=== PATIENT | female | born 1950 | race Caucasian/White ===

== ENCOUNTER 2017-05-25 15:04 | Observation (INO) ==
--- NOTE | 2017-05-25 16:45 | Emergency Department Note ---
Disposition Clinical Impression: GI bleed Qualifiers: GI bleed type/associated pathology: unspecified gastrointestinal hemorrhage type Qualified Code(s): K92.2 - Gastrointestinal hemorrhage, unspecified Disposition: Admitted As Inpatient Condition: Fair GI Bleed HPI - General Chief complaint: ED GI Bleed Stated complaint: bloody stool Time Seen by Provider: 05/25/17 16:04 Source: patient Mode of arrival: private vehicle Limitations: no limitations Nursing Notes Reviewed: Yes Vital Signs Reviewed: Yes - History of Present Illness HPI Narrative: 66-year-old female history of ulcerative colitis diagnosed 20 years ago without GI follow-up who presents to the ER with a chief complaint of dark bowel movements. Patient states that on Thursday she started noticing dark tarry bowel movements. She states that on Thursday she had dark diarrhea as well as dark vomit. She reports that she had her hemoglobin checked on Thursday for preoperative evaluation and it was 13. She denies a prior history of GI bleed in the past. She is not on any anticoagulation. She states that for the last 2 months she was dealing with a dental issue and was on ibuprofen and aspirin. She reports that she had endoscopy upper and lower in January that was okay but "they said my stomach looked wall". She reports weakness and dyspnea on exertion. No other complaints. Pt Subjective Complaint: melena Onset (ago): day(s) Consistency: intermittent Severity: moderate Improves with: nothing Worsens with: nothing Context: other (ulcerative colitis) Associated symptoms: Reports: shortness of breath, syncope/near-syncope, other ( weakness) Treatments Prior to Arrival: none - Related Data Home Medications Medication Instructions Recorded Confirmed Calcium Phosphate Trib/Vit D3 1 each PO DAILY 05/25/17 05/25/17 [Calcium Adult Gummies] Cholecalciferol (Vitamin D3) 2,000 unit PO DAILY 05/25/17 05/25/17 [Vitamin D] L. Acidophilus/Pectin, [place] 1 each PO BID 05/25/17 05/25/17 [Acidophilus Probiotic Capsule] Metoprolol [Lopressor] 25 mg PO DAILY 05/25/17 05/25/17 Multivitamin [Multi-Day Vitamins] 1 each PO DAILY 05/25/17 05/25/17 Omeprazole Magnesium [Prilosec Otc] 20 mg PO DAILY 05/25/17 05/25/17 Potassium 99 mg PO DAILY PRN 05/25/17 05/25/17 Allergies Allergy/AdvReac Type Severity Reaction Status Date / Time shellfish derived Allergy Hives Verified 05/25/17 15:15 All systems ED: reviewed and negative except as stated. Constitutional: Denies: fever Cardiovascular: Reports: dyspnea on exertion. Denies: chest pain Respiratory: Denies: cough, dyspnea Gastrointestinal: Reports: melena. Denies: abdominal pain, nausea Genitourinary: Denies: hematuria Past Medical History - Past Medical History Attestation: Yes The following information was validated with the patient. Source: patient Medical history: Reports: arthritis, GERD, hyperlipidemia, syncope Surgical history: Reports: cholecystectomy, hysterectomy, orthopedic, other, other Psychiatric history: Reports: no psych history - Social History Smoking Status: Never smoker Alcohol use: Reports: none Drug use: Reports: none Physical Exam - General Limitations: no limitations General appearance: alert, in no apparent distress - Head Head exam: atraumatic, normocephalic, normal inspection - Eye Eye exam: Present: normal appearance, EOMI - ENT ENT exam: normal exam - Neck Neck exam: Present: normal inspection - Chest Chest inspection: Present: normal inspection, symmetric chest wall rise - Respiratory Respiratory exam: Present: normal lung sounds bilaterally - Cardiovascular Cardiovascular exam: Present: normal rhythm, tachycardia, normal heart sounds - Abdominal Exam Abdominal exam: Present: soft, Non-Tender. Absent: tenderness, distention, rigidity - Rectal Exam Rectal exam: Present: normal inspection, black stool - Extremities Exam Extremities exam: Present: normal inspection, full ROM - Expanded Upper Extremity Exam Shoulder exam: Present: normal inspection, full ROM Arm exam: Present: normal inspection, full ROM Elbow exam: Present: normal inspection, full ROM Forearm/Wrist exam: Present: normal inspection, full ROM Hand exam: Present: normal inspection, full ROM - Expanded Lower Extremity Exam Hip/Pelvis exam: Present: normal inspection, full ROM Upper leg exam: Present: normal inspection, full ROM Knee exam: Present: normal inspection, full ROM Lower leg exam: Present: normal inspection, full ROM Ankle exam: Present: normal inspection, full ROM Foot/toe exam: Present: normal inspection, full ROM - Neurological Exam Neurological exam: Present: alert, other (GCS 15, Non focal neurologic exam) - Psychiatric Psychiatric exam: Present: normal affect, normal mood - Skin Skin exam: Present: warm, dry, intact, normal color Course Course Narrative: Patient seen and examined. Vital signs reviewed. She is slightly tachycardic here but otherwise hemodynamically stable. We will obtain a CBC, type and screen as well as stool occult blood. We will give her some IV fluids for her tachycardia. Disposition pending. - Reevaluation(s) Reevaluation #1: I discussed results of the patient's lab work with her. She is in agreement with staying in the hospital. She will be admitted to the hospitalist service. - Consultations Consultation #1: I spoke with the on-call senior operations analyst Dr. Small. I discussed the patient's history, labs and interventions to date. He requests give the patient protonic' s bolus and start her on a drip. He will see her in consultation. Vital Signs Temperature 97.4 F L 05/25/17 15:12 Pulse Rate 104 05/25/17 15:12 Respiratory Rate 18 05/25/17 15:12 Blood Pressure 148/78 05/25/17 15:12 O2 Sat by Pulse Oximetry 97 05/25/17 15:12 Temperature 97.4 F L 05/25/17 15:12 Pulse Rate 81 05/25/17 19:00 Respiratory Rate 16 05/25/17 19:00 Blood Pressure 123/53 05/25/17 19:00 O2 Sat by Pulse Oximetry 99 05/25/17 19:00 Oxygen Delivery Oxygen Delivery Room Air GI Bleed - [facility] Narrative Medical decision making narrative: 66-year-old female presents to the ER due to tarry stools. She reports a hemoglobin of 13 on Thursday of last week. She also reports NSAID use within the last few months. She has a history of ulcerative colitis but is not on any medications for it. Her hemoglobin today is 7.8 from 13. She was given IV fluids as well as Protonix bolus and drip. Gastroenterology was consulted in the emergency department. Patient admitted to the hospitalist service. - Lab Data Lab results reviewed: Yes I reviewed the patient's lab results. Result diagrams: 05/25/17 16:38 05/25/17 16:38 Lab Results 05/25/17 05/25/17 05/25/17 Range/Units 16:38 16:38 16:38 WBC 9.3 (4.3-11.1) K/mcL RBC 2.51 L (3.82-4.97) M/mcL Hgb 7.8 L (11.5-15.4) g/dL Hct 23.1 L (35.3-44.9) % MCV 92.0 (83.0-100.0) fL MCH 31.1 (28.0-33.3) pg MCHC 33.8 (31.6-35.5) g/dL RDW 13.9 (11.5-14.5) % Plt Count 265 (140-400) K/mcL MPV 10.4 (9.4-12.4) fL Immature Gran % 2.0 (0-4) % Seg Neutrophils % 61.3 % Lymphocytes % 27.0 % Monocytes % 8.5 % Eosinophils % 0.9 % Basophils % 0.3 % Neutrophils # 5.7 (1.6-8.9) K/mcL Lymphocytes # 2.5 (0.6-4.6) K/mcL Monocytes # 0.8 (0.0-1.3) K/mcL Eosinophils # 0.1 (0.0-0.6) K/mcL Basophils # 0.0 (0.0-0.2) K/mcL PT (9.4-12.1) Seconds INR Sodium 137 (136-145) mEq/L Potassium 4.1 (3.5-4.5) mEq/L Chloride 104 (98-109) mEq/L Carbon Dioxide 24 (19-29) mEq/L BUN 30 H (7-20) mg/dL Creatinine 0.81 (0.57-1.11) mg/dL Est GFR ( Amer) > 60 (> 60) Est GFR (Non-Af Amer) > 60 (> 60) BUN/Creatinine Ratio 37 H (6-26) Glucose 113 H (70-99) mg/dL Calculated Osmolality 291 (280-300) Calcium 9.1 (8.6-10.8) mg/dL Stool Occult Blood (Negative) Blood Type A POSITIVE Antibody Screen NEGATIVE 05/25/17 05/25/17 Range/Units 16:43 16:45 WBC (4.3-11.1) K/mcL RBC (3.82-4.97) M/mcL Hgb (11.5-15.4) g/dL Hct (35.3-44.9) % MCV (83.0-100.0) fL MCH (28.0-33.3) pg MCHC (31.6-35.5) g/dL RDW (11.5-14.5) % Plt Count (140-400) K/mcL MPV (9.4-12.4) fL Immature Gran % (0-4) % Seg Neutrophils % % Lymphocytes % % Monocytes % % Eosinophils % % Basophils % % Neutrophils # (1.6-8.9) K/mcL Lymphocytes # (0.6-4.6) K/mcL Monocytes # (0.0-1.3) K/mcL Eosinophils # (0.0-0.6) K/mcL Basophils # (0.0-0.2) K/mcL PT 11.3 (9.4-12.1) Seconds INR 1.0 Sodium (136-145) mEq/L Potassium (3.5-4.5) mEq/L Chloride (98-109) mEq/L Carbon Dioxide (19-29) mEq/L BUN (7-20) mg/dL Creatinine (0.57-1.11) mg/dL Est GFR ( Amer) (> 60) Est GFR (Non-Af Amer) (> 60) BUN/Creatinine Ratio (6-26) Glucose (70-99) mg/dL Calculated Osmolality (280-300) Calcium (8.6-10.8) mg/dL Stool Occult Blood Positive A (Negative) Blood Type Antibody Screen - EKG Data EKG attestation: Yes I reviewed and interpreted this EKG. EKG results narrative: EKG demonstrates sinus rhythm. Normal axis. Normal intervals. No ST elevations or depressions. No acute ischemic findings. No significant changes from previous EKG. S.B.A.R. - S.B.A.R. Situation: Demographics, MOA Background: Presenting Complaint, Relevant PMH, Meds, & Allergies Assessment: Vital Signs, Course and respsone to treatment, Exam Concerns, Patient/Family Expectation, Pertinant Lab Results, Outstanding Labs Recommendation: Barrier(s) to disposition, Recommendation based on pending studies, treatments, or consults S.B.A.RArias Report Given to: [facility] Time: 18:41 Attestation Statement - Attestation Attestation: I examined this patient and my medical decision-making was reviewed with the Resident Physician. I agree with the documented findings, disposition and treatment plan as described except to the extent set forth below. Hemodynamically normal patient with a significant drop in hemoglobin over the last few days. Had melanotic stool a couple of days ago, now combating a bright red blood. Stool on her exam here is dark brown, possibly black per the resident's report. Spoke with endoscopist, patient being admitted to the hospital.
[2017-05-25] MEDS ORDERED: 0.9 % Sodium Chloride 1,000 ML IVC ONE (16:46)
[2017-05-25 17:02] LABS: Basophils % 0.3 %; Eosinophils # 0.1 K/mcL (0.0-0.6); Eosinophils % 0.9 %; Hematocrit 23.1 % (35.3-44.9); Lymphocytes # 2.5 K/mcL (0.6-4.6); Mean Corpuscular HGB Conc 33.8 g/dL (31.6-35.5); Mean Corpuscular Hemoglobin 31.1 pg (28.0-33.3); Mean Platelet Volume 10.4 fL (9.4-12.4); Monocytes # 0.8 K/mcL (0.0-1.3); Monocytes % 8.5 %; Neutrophils # 5.7 K/mcL (1.6-8.9); Platelet Count 265 K/mcL (140-400); Red Blood Count 2.51 M/mcL (3.82-4.97); Red Cell Distribution Width 13.9 % (11.5-14.5); Segmented Neutrophils % 61.3 %
[2017-05-25 17:04] LABS: Hemoglobin 7.8 g/dL (11.5-15.4)
[2017-05-25 17:14] LABS: BUN/Creatinine Ratio 37 (6-26); Blood Urea Nitrogen 30 mg/dL (7-20); Calcium 9.1 mg/dL (8.6-10.8); Carbon Dioxide 24 mEq/L (19-29); Chloride 104 mEq/L (98-109); Glucose 113 mg/dL (70-99); Osmolality,Calculated 291 (280-300); Potassium 4.1 mEq/L (3.5-4.5); Sodium 137 mEq/L (136-145); eGFR For African Americans > 60 (> 60); eGFR For Non-African Americans > 60 (> 60)
[2017-05-25 17:16] LABS: Prothrombin Time 11.3 Seconds (9.4-12.1)
[2017-05-25] MEDS ORDERED: Pantoprazole 80 MG in 0.9 % Sodium Chloride 50 ML IVPB ONE (17:38)
[2017-05-25] MEDS: Pantoprazole 40 MG in 0.9 % Sodium Chloride Mini Bag 100 ML IVC SCH (19:44)
[2017-05-25] MEDS ORDERED: Ondansetron 4 MG/2 ML VIAL IVP PRN (21:30)
--- NOTE | 2017-05-25 22:17 | Internal Med History&Physical ---
<Domenic Good - Last Filed: 05/25/17 22:54> Date of Encounter: 05/25/17 Time of Encounter: 21:00 Assessment and Plan (1) Acute blood loss anemia Current visit: Yes Status: Acute - Symptomatic anemia with Hgb 7.8, which dropped significant from 13.1 on (per eCW). - Most likely secondary to upper GI bleed given reported melena and positive stool occult test. - Will type & cross and give one unit of pRBC transfusion given Hgb below 8 and symptomatic. - Closely monitor H&H. (2) GI bleed Current visit: Yes Status: Acute - Acute blood loss anemia with melena and positive stool occult test. - Likely upper GI bleed secondary to long-term NSAIDs use. - Patient is instructed to avoid NSAIDs use in the future. - Continue Protonix drip. - NPO now. - GI has been consulted. Appreciate further evaluation and possible intervention with scope. Qualifiers: GI bleed type/associated pathology: melena Qualified Code(s): K92.1 - Melena (3) GERD (gastroesophageal reflux disease) Current visit: Yes Status: Chronic - With history of Yoo's esophagus and hiatal hernia s/p surgical repair. - Continue Protonix drip. Qualifiers: Esophagitis presence: esophagitis presence not specified Qualified Code(s) : K21.9 - Gastro-esophageal reflux disease without esophagitis (4) DVT prophylaxis Current visit: Yes Status: Acute - Given current GI bleed, will use calf pump as mechanical DVT prophylaxis. Internal Medicine - H&P: HPI Chief complaint: Dark stool Admitted From: Emergency Dept Plans for Post Hospital Care: Home History of present illness: Ms. Michael is a 66 year old female with PMH of GERD, Yoo's esophagus and hiatal hernia s/p surgical repair. Patient presented with complaint of dark stool since 05/20/17. It got worse over time as patient had dark vomitus and started to notice red blood with dark stool. Other associated symptoms include abdominal cramping, worsening fatigue, lightheadedness, cold sweat, occasional shortness of breath and palpitation. Patient denies chest pain, syncope, dysphagia, fever, easily bruise, hematuria, dysuria. Patient admits taking ibuprofen 600 mg 1 to 2 tablet daily for pain after dental procedure in past one month. Per patient, she was told to have ulcerative colitis 20 years ago but never got any treatment. Patient reports having schedule left buttock lipoma removal with Dr. Tomlinson on 05/27/17. Patient is full code. In ED, Dr. Small was called and recommended Protonix drip now and will see her tomorrow. Past Med Surg Social Fam HX - Past Medical History Medical history: arthritis, GERD, hyperlipidemia, syncope Psychiatric history: no psych history - Past Surgical History Surgical History: cholecystectomy, hysterectomy, orthopedic, other, other - Social History Smoking Status: Never smoker Alcohol use: none Drug use: none - Family History Father Hx Family GI Disorders: Yes (colon cancer) Internal Medicine - H&P: Meds Calcium Phosphate Trib/Vit D3 [Calcium Adult Gummies] 1 each PO DAILY 05/25/17 [ History] Cholecalciferol (Vitamin D3) [Vitamin D] 2,000 unit PO DAILY 05/25/17 [History] L. Acidophilus/Pectin, [place] [Acidophilus Probiotic Capsule] 1 each PO BID 05/04 [History] Metoprolol [Lopressor] 25 mg PO DAILY 05/25/17 [History] Multivitamin [Multi-Day Vitamins] 1 each PO DAILY 05/25/17 [History] Omeprazole Magnesium [Prilosec Otc] 20 mg PO DAILY 05/25/17 [History] Potassium 99 mg PO DAILY PRN 05/25/17 [History] Allergies shellfish derived Allergy (Verified 05/25/17 15:15) Hives All Systems PM: A 10-system review of systems was performed and is negative for pertinent findings except as documented above in the HPI. - Constitutional Constitutional: chills, lethargy, no fever(s) - EENT Eyes: no change in vision Ears: no decreased hearing Nose, mouth and throat: no dysphagia, no odynophagia - Cardiovascular Cardiovascular ROS IM: lightheadedness, palpitations, no chest pain, no edema, no syncope - Respiratory Respiratory: dyspnea, no cough, no hemoptysis - Gastrointestinal Gastrointestinal: as per HPI, abdominal pain, hematochezia, melena, nausea, vomiting - Genitourinary Genitourinary: no difficulty urinating, no dysuria, no hematuria - Integumentary Integumentary IM: no pruritus, no rash - Neurological Neurological ROS: no focal weakness, no numbness, no tingling - Hematologic/Lymphatic Hematologic/Lymphatic: no easy bleeding, no easy bruising - Constitutional Vitals: Temp Pulse Resp BP Pulse Ox 98.3 F 85 16 133/72 96 05/25/17 20:55 05/25/17 20:55 05/25/17 20:55 05/25/17 20:55 05/25/17 20:55 General appearance: Present: cooperative, A&O X 3, no acute distress, answers questions appropriately - Head Head exam: Present: atraumatic, normocephalic - Eye Eye exam: Present: EOMI, PERRL, conjuntiva pink, sclera anicteric - Neck Neck exam general surgery: Present: supple, trachea midline. Absent: lymphadenopathy - Respiratory Respiratory exam: Present: CTAB. Absent: accessory muscle use, rales, rhonchi, wheezes - Cardiovascular Cardiovascular exam: Present: RRR, +S1, +S2. Absent: diastolic murmur, gallop, rubs, systolic murmur - GI/Abdominal GI/Abdominal exam: Present: normal bowel sounds, soft, no peritoneal signs. Absent: distended, tenderness - Extremities Exam Extremities exam: Present: warm, radial pulses palpable and symetrical. Absent : calf tenderness, cyanotic, pedal edema - Neurological Exam Neurological exam: Present: CN II-XII intact, oriented X3, no focal deficits. Absent: pronater drift, facial droop, speech deficit - Skin Skin exam: Present: dry, intact, warm Internal Med - H&P Results - Labs CBC & Chem 7: 05/25/17 16:38 05/25/17 16:38 <Jai Marx H - Last Filed: 05/25/17 22:59> Date of Encounter: 05/25/17 Internal Medicine - H&P: HPI History of present illness: Ms. Michael is a 66 year old female All Systems PM: A 10-system review of systems was performed and is negative for pertinent findings except as documented above in the HPI. - Constitutional Vitals: Temp Pulse Resp BP Pulse Ox 98.3 F 85 16 133/72 96 05/25/17 20:55 05/25/17 20:55 05/25/17 20:55 05/25/17 20:55 05/25/17 20:55 Internal Med - H&P Results - Labs CBC & Chem 7: 05/25/17 16:38 05/25/17 16:38 - Attending Attestation 1. Acute blood loss anemia/symptomatic anemia secondary to possible upper GI bleed Transfuse 1 unit of blood due to symptomatic anemia, monitor CBC, continue Protonix IV, GI consult 2. Migraines, Tylenol as needed Time spent on this admission 40 minutes. High risk due to blood loss anemia I examined this patient and my medical decision-making was reviewed with the Resident Physician. I agree with the documented findings, disposition and treatment plan as described except to the extent set forth below.
[2017-05-25] MEDS ORDERED: Acetaminophen 325 MG TABLET PO PRN (22:43)
[2017-05-25] MEDS: 0.9 % Sodium Chloride 1,000 ML IVC SCH (23:58)
[2017-05-26] MEDS ORDERED: 0.9 % Sodium Chloride 250 ML ONE (00:01)
[2017-05-26] MEDS: Pantoprazole 40 MG in 0.9 % Sodium Chloride Mini Bag 100 ML IVC SCH ×3 (00:32→10:55)
[2017-05-26 05:46] LABS: Hematocrit 25.1 % (35.3-44.9); Mean Corpuscular HGB Conc 31.9 g/dL (31.6-35.5); Mean Corpuscular Hemoglobin 29.9 pg (28.0-33.3); Mean Corpuscular Volume 93.7 fL (83.0-100.0); Platelet Count 231 K/mcL (140-400); Red Blood Count 2.68 M/mcL (3.82-4.97); Red Cell Distribution Width 13.8 % (11.5-14.5)
--- NOTE | 2017-05-26 12:37 | Electrocardiograph Report ---
[address] [address] Test Date: 2017-05-25 Pat Name: Reny Michael Department: 102 Room: 3A36 Gender: F Infusion Rn: Carolyn : 1950 Requested By: Lance Lynch Order Number: [id number] Reading MD: Jane Martinez Measurements Intervals [place] Rate: 86 P: 18 UT: 171 QRS: -18 QRSD: 102 T: 6 QT: 414 QTc: 457 Interpretive Statements SINUS RHYTHM Electronically Signed On 05-26-2017 12:35:53 EDT by Jane Martinez
--- NOTE | 2017-05-26 12:39 | Gastroenterology Consult Note ---
Date of Encounter: 05/26/17 Time of Encounter: 11:05 - Assessment and plan (1) Acute blood loss anemia Current Visit: Yes Status: Acute Assessment and plan: Secondary to GI bleeding. Continue to monitor CBC and transfuse PRBC as needed. (2) GI bleed Current Visit: Yes Status: Acute Assessment and plan: Pt with melena for 1-2 weeks prior to admission. She has also been taking 600 mg ibuprofen 1-2 times per day for the past month. Plan for EGD today to r/o esophagitis, gastritis, duodenitis, PUD, MW tear, or AVM. Keep NPO. Qualifiers: GI bleed type/associated pathology: melena Qualified Code(s): K92.1 - Melena (3) Yoo's esophagus Current Visit: Yes Status: Acute Assessment and plan: EGD 07/16/[address] Tomlinson c/w Yoo's esophagus. Continue PPI. Qualifiers: Yoo's esophagus type: without dysplasia Qualified Code(s): K22.70 - Yoo's esophagus without dysplasia - Time Spent With Patient Total time spent is greater than 50% in coordination of care (as documented) at patient's floor/unit and/or counseling patient: GI History of Present Illness - Data of Consult Patient: new to practice Consult date: 05/26/17 Requesting Physician: Eilzabeth Huff MD - Consult Narrative Reason for consult: GI Bleed History of present illness: Ms. Michael is a 66 year old female with PMHx of arthritis, GERD, Yoo's esophagus, hiatal hernia s/p surgical repair. She presented to the ED with c/o dark stool since 05/20. She developed dark vomitus and started to notice red blood with dark stool. She also complained of abdominal cramping and fatigue. She denies fever, chills, chest pain, or dysphagia. She has been taking 1-2 tablets daily of ibuprofen 600 mg after dental procedure last month. Per patient , she was told to have ulcerative colitis 20 years ago but never got any treatment. We have been consulted to evaluate her GI bleeding. Hgb on admission was 7.8 and this AM Hgb 8. FOBT was positive. Pt states her last EGD and colonoscopy were December or January 2017, but I was unable to find those records. Procedures: Colonoscopy 07/16/2015 Dr. Tomlinson: 8mm tubular adenoma descending colon, ulcerated mucosa at TI- c/w mild acute ileitis. EGD 07/16/2015 Dr. Tomlinson: c/w Yoo's esophagus. NSAIDs: Ibuprofen Anticoagulation: None Past Med Surg Social Fam HX - Past Medical History Medical history: arthritis, GERD, hyperlipidemia, syncope Psychiatric history: no psych history - Past Surgical History Surgical History: cholecystectomy, hysterectomy, orthopedic, other, other - Social History Smoking Status: Never smoker Alcohol use: none Drug use: none - Family History Father Hx Family GI Disorders: Yes (colon cancer) - Gastrointestinal Gastrointestinal: Present: as per HPI - Constitutional Constitutional: as per HPI - EENT Eyes: as per HPI Ears: Present: as per HPI Nose, mouth and throat: Present: as per HPI - Cardiovascular Cardiovascular ROS: Present: as per HPI - Respiratory Respiratory IM: Present: as per HPI - Genitourinary Genitourinary: Absent: change in color, Urinary frequency - Neurological ROS Neurological GI: Present: as per HPI - Hematologic/Lymphatic Hematologic/Lymphatic pediatric: Present: as per HPI - Musculoskeletal Musculoskeletal ROS GI: Present: as per HPI - Integumentary Integumentary GI: Present: as per HPI - Psychiatric ROS Psychiatric GI: Present: as per HPI - Endocrine Endocrine IM: Present: as per HPI - Constitutional Vitals: Temp Pulse Resp BP Pulse Ox 97.7 F 97 18 128/77 96 05/26/17 11:35 05/26/17 11:35 05/26/17 11:35 05/26/17 11:35 05/26/17 11:35 General appearance: Present: cooperative, A&O X 3, no acute distress, answers questions appropriately - Head Head exam: Present: atraumatic, normocephalic - Eye Eye exam: Present: normal appearance, sclera anicteric - ENT ENT exam: Present: mucous membranes dry - Neck Neck exam general surgery: Present: normal inspection, trachea midline - Respiratory Respiratory exam: Present: CTAB. Absent: rales, rhonchi - Cardiovascular Cardiovascular exam: Present: RRR, +S1, +S2 - GI/Abdominal GI/Abdominal exam: Present: soft, no peritoneal signs. Absent: distended, firm , guarding, tenderness - Rectal Rectal exam: Present: deferred - Extremities Exam Extremities exam: Present: warm - Neurological Exam Neurological exam: Present: no focal deficits - Psychiatric Psychiatric exam: Present: normal affect, normal mood - Skin Skin exam: Present: dry, intact, normal color, warm Results - Labs CBC & Chem 7: 05/26/17 05:36 05/25/17 16:38 Labs: Last Result Calcium 9.1 mg/dL (8.6-10.8) 05/25/17 16:38 Stool Occult Blood Positive (Negative) A 05/25/17 16:45 Entire Visit Hgb 8.0 g/dL (11.5-15.4) L 05/26/17 05:36 Hct 25.1 % (35.3-44.9) L 05/26/17 05:36 PT 11.3 Seconds (9.4-12.1) 05/25/17 16:43 - ABG ABG results: PT/INR, D-dimer PT 11.3 Seconds (9.4-12.1) 05/25/17 16:43 Consult Discharge Plan - Plan Referrals: Bárbara Watson MD [Primary Care Provider] - 06/03/17 9:30 am
[2017-05-26] MEDS: 0.9 % Sodium Chloride 1,000 ML IVC SCH (13:49)
--- NOTE | 2017-05-26 16:59 | Internal Med Progress Note ---
Date of Encounter: 05/26/17 Time of Encounter: 10:30 - Assessment and plan (1) Acute blood loss anemia Current Visit: Yes Status: Acute Assessment and plan: Due to GI bleed. Hemoglobin 8 this morning. We will continue to monitor. Moderate risk for complications. (2) GI bleed Current Visit: Yes Status: Acute Assessment and plan: Gastroenterology has been consulted. Plan to do upper GI endoscopy. Will follow results. Continue IV PPI Qualifiers: GI bleed type/associated pathology: melena Qualified Code(s): K92.1 - Melena (3) GERD (gastroesophageal reflux disease) Current Visit: Yes Status: Chronic Assessment and plan: On Protonix. History of Yoo's esophagus. Qualifiers: Esophagitis presence: esophagitis presence not specified Qualified Code(s) : K21.9 - Gastro-esophageal reflux disease without esophagitis (4) DVT prophylaxis Current Visit: Yes Status: Acute Assessment and plan: With SCDs - Subjective Interval history: Patient has not had any episodes of GI bleed today. Has not had any bowel movement yet. Has remained nothing by mouth overnight. Received 1 unit of packed red blood cells yesterday. No abdominal pain reported. - Constitutional Vitals: Temp Pulse Resp BP Pulse Ox 98.2 F 77 16 95/56 94 05/26/17 14:55 05/26/17 14:55 05/26/17 14:55 05/26/17 14:55 05/26/17 14:55 General appearance: Present: cooperative, A&O X 3, no acute distress, answers questions appropriately - Eye Eye exam: Present: EOMI, PERRL, conjuntiva pink, sclera anicteric - Neck Neck exam general surgery: Present: supple, trachea midline. Absent: lymphadenopathy - Respiratory Respiratory exam: Present: CTAB. Absent: accessory muscle use, rales, rhonchi, wheezes - Cardiovascular Cardiovascular exam: Present: RRR, +S1, +S2. Absent: diastolic murmur, gallop, rubs, systolic murmur - GI/Abdominal GI/Abdominal exam: Present: normal bowel sounds, soft, no peritoneal signs. Absent: distended, tenderness - Extremities Exam Extremities exam: Present: warm, radial pulses palpable and symmetrical. Absent : calf tenderness, cyanotic, pedal edema - Neurological Exam Neurological exam: Present: alert, oriented X3, no focal deficits. Absent: speech deficit - Skin Skin exam: Present: dry, intact, pallor Internal Medicine: Result - Labs CBC & Chem 7: 05/26/17 05:36 05/25/17 16:38 Labs: Short CBC 05/26/17 Range/Units 05:36 WBC 6.9 (4.3-11.1) K/mcL Hgb 8.0 L (11.5-15.4) g/dL Hct 25.1 L (35.3-44.9) % Plt Count 231 (140-400) K/mcL - ABG Interpretation ABG results: PT/INR, D-dimer PT 11.3 Seconds (9.4-12.1) 05/25/17 16:43 Consult Discharge Plan - Plan Referrals: Bárbara Watson MD [Primary Care Provider] - 06/03/17 9:30 am
[2017-05-26] MEDS ORDERED: *HR* FentaNYL (PF) 100 MCG/2 ML VIAL IVP PRN (17:37)
[2017-05-26] MEDS ORDERED: *HR* Midazolam HCl 5 MG/5 ML VIAL IVP PRN (17:37)
[2017-05-26] MEDS ORDERED: Tetracaine/Benzocaine/Butamben 200MG/SPRAY (100SPY/BOT) MM ONE (17:37)
--- NOTE | 2017-05-26 17:38 | Pre-Sedation Evaluation ---
Pre-sedation evaluation - Pre-sedation checklist Recent Vitals: Last Vital Signs Temp 98.2 F 05/26/17 14:55 Pulse 77 05/26/17 14:55 Resp 16 05/26/17 14:55 BP 95/56 05/26/17 14:55 Pulse Ox 94 05/26/17 14:55 ASA Classification *see protocol: CLASS III-Severe systemic disease
[2017-05-26 17:39] LABS: Hematocrit 25.7 % (35.3-44.9); Hemoglobin 7.9 g/dL (11.5-15.4)
[2017-05-26] MEDS ORDERED: *HR* FentaNYL (PF) 100 MCG/2 ML VIAL ONE (17:51)
[2017-05-26] MEDS ORDERED: *HR* Midazolam HCl 5 MG/5 ML VIAL IVP ONE (17:51)
[2017-05-26] MEDS ORDERED: SODIUM CHLORIDE/NAHCO3/KCL/PEG 4,000 ML SOLN.RECON PO ONE (18:12)
[2017-05-27] MEDS: Pantoprazole 40 MG in 0.9 % Sodium Chloride Mini Bag 100 ML IVC SCH (00:10)
[2017-05-27] MEDS: 0.9 % Sodium Chloride 1,000 ML IVC SCH (03:08)
[2017-05-27 06:45] LABS: Basophils % 0.3 %; Eosinophils # 0.1 K/mcL (0.0-0.6); Hematocrit 25.4 % (35.3-44.9); Immature Granulocytes % 0.8 % (0-4); Lymphocytes # 1.8 K/mcL (0.6-4.6); Lymphocytes % 27.8 %; Mean Corpuscular HGB Conc 31.5 g/dL (31.6-35.5); Mean Corpuscular Hemoglobin 30.1 pg (28.0-33.3); Mean Corpuscular Volume 95.5 fL (83.0-100.0); Mean Platelet Volume 10.8 fL (9.4-12.4); Monocytes # 0.5 K/mcL (0.0-1.3); Platelet Count 247 K/mcL (140-400); Red Blood Count 2.66 M/mcL (3.82-4.97); Red Cell Distribution Width 14.6 % (11.5-14.5); Segmented Neutrophils % 61.1 %
[2017-05-27 07:00] LABS: BUN/Creatinine Ratio 13 (6-26); Calcium 8.1 mg/dL (8.6-10.8); Carbon Dioxide 22 mEq/L (19-29); Chloride 113 mEq/L (98-109); Glucose 91 mg/dL (70-99); Osmolality,Calculated 293 (280-300); Potassium 3.4 mEq/L (3.5-4.5); eGFR For African Americans > 60 (> 60); eGFR For Non-African Americans > 60 (> 60)
[2017-05-27 07:01] LABS: Blood Urea Nitrogen 10 mg/dL (7-20); Sodium 142 mEq/L (136-145)
[2017-05-27] MEDS ORDERED: Polyethylene Glycol 3350 255 GM POWDER PO ONE (07:02)
[2017-05-27] MEDS ORDERED: 0.9 % Sodium Chloride w KCl 20 MEQ/1,000 ML MLS IVC SCH (12:00)
[2017-05-27] MEDS ORDERED: Simethicone 40 MG/0.6 ML MLS IR ONE (12:35)
--- NOTE | 2017-05-27 12:59 | Anesthesia Evaluation PreOp ---
Date of Encounter: 05/27/17 Time of Encounter: 12:57 - Past History Planned Operation: cscope, anemia Cardiac History: HTN, Hyperlipidemia Pulmonary History: Denies Any Significant HX MANAGER DIVERSITY History: Denies Any Significant HX Other Medical History: GERD, Other (h/o tubular adenoma descending colon, oa) Anesthesia History: No Prior Anesthetic Complications, Past Anesthesia ( cholecyst, hysterect, orthopedic) Alcohol Use: none Drug use: none Medications and Allergies Calcium Phosphate Trib/Vit D3 [Calcium Adult Gummies] 1 each PO DAILY 05/25/17 [ History] Cholecalciferol (Vitamin D3) [Vitamin D] 2,000 unit PO DAILY 05/25/17 [History] L. Acidophilus/Pectin, [place] [Acidophilus Probiotic Capsule] 1 each PO BID 05/04 [History] Metoprolol [Lopressor] 25 mg PO DAILY 05/25/17 [History] Multivitamin [Multi-Day Vitamins] 1 each PO DAILY 05/25/17 [History] Omeprazole Magnesium [Prilosec Otc] 20 mg PO DAILY 05/25/17 [History] Potassium 99 mg PO DAILY PRN 05/25/17 [History] Allergies shellfish derived Allergy (Verified 05/25/17 15:15) Hives - Meds/Allergy Pre-op Review Medications Reviewed: Yes Allergies Reviewed: Yes Beta Blockers on Current Med List: Yes If Beta Blockers taken, Date/Time (Last Dose taken): metoprolol at 09:00 Anesthesia Results - Labs 05/27/17 05:29 05/27/17 05:29 - Imaging EKG: report reviewed (sr) Anesthesia Exam Vital Signs/O2 Sat/Glucose, Most Current Temp Pulse Resp BP Pulse Ox 05/27/17 12:57 98.8 F 67 18 126/68 94 05/27/17 11:58 97.4 F L 66 14 111/64 97 - HEENT Pupil (Motor): Pupils equal, EOMI Mallampati: II Teeth: Poor dentition Oral Opening: Greater than 3 - MANAGER DIVERSITY LOC: Oriented MANAGER [employer] Motor: Normal RUE, Normal LUE, Normal RLE, Normal LLE, Normal Face MANAGER [employer] Sensory: Normal: RUE, LUE, RLE, LLE, Face - Cardiac Rhythm: Regular Murmur: None - Pulmonary Breath Sounds: bilateral Clear Respiratory Effort: Symmetrical Anesthesia Assess/Plan ASA Score: 2 Modified [place] Scale for Level of Consciousness: Cooperative, oriented, and tranquil Anesthetic Plan: MAC Monitoring Plan: Standard Monitors Recovery Plan: Other
[2017-05-27] MEDS ORDERED: 0.9 % Sodium Chloride 500 ML IVC SCH (13:00)
[2017-05-27 14:29] VITALS: BP 118/73
--- NOTE | 2017-05-27 15:01 | Discharge Summary ---
Date of Encounter: 05/27/17 Time of Encounter: 14:57 - Discharge Diagnosis (1) Acute blood loss anemia Priority: Primary Status: Acute (2) GI bleed Priority: Secondary Status: Acute Qualifiers: GI bleed type/associated pathology: melena Qualified Code(s): K92.1 - Melena (3) GERD (gastroesophageal reflux disease) Priority: Secondary Status: Chronic Qualifiers: Esophagitis presence: esophagitis presence not specified Qualified Code(s) : K21.9 - Gastro-esophageal reflux disease without esophagitis (4) DVT prophylaxis Priority: Secondary Status: Acute - Discharge Medications Home Medications: Calcium Phosphate Trib/Vit D3 [Calcium Adult Gummies] 1 each PO DAILY 05/25/17 [ History] Cholecalciferol (Vitamin D3) [Vitamin D3] 2,000 unit PO DAILY 05/25/17 [History] L. Acidophilus/Pectin, [place] [Acidophilus Probiotic Capsule] 1 each PO BID 05/04 [History] Metoprolol [Lopressor] 25 mg PO DAILY 05/25/17 [History] Multivitamin [Multi-Day Vitamins] 1 each PO DAILY 05/25/17 [History] Omeprazole Magnesium [Prilosec Otc] 20 mg PO DAILY 05/25/17 [History] Potassium 99 mg PO DAILY PRN 05/25/17 [History] Allergies/Adverse Reactions: Allergies Iodinated Contrast- Oral and IV Dye Allergy (Verified 05/27/17 13:22) Hives Date of admission: 05/25/17 18:42 Primary care physician: Bárbara Watson Consults: 05/25/17 17:39 Consult to Gastroenterology [CONS] Routine Consulting Provider: Gastroenterology Ana Rosa Reason for Consult: GI bleed Time Notified: 17:39 Call Completed: Yes Discharging clinician: Elizabeth Huff Anticipated date of discharge: 05/27/17 - Patient Status Disposition: Home, Self-Care Condition: Good Functional capacity at discharge: independent ambulation Overall status at discharge: patient is progressing back to baseline - Discharge Instructions Instructions: Anemia (GEN) Follow Up With: Bárbara Watson MD [Primary Care Provider] - 06/03/17 9:30 am Emmanuel Small MD [Partnered Physician] - (in 1-2 weeks WEB REQUEST - OFFICE WILL CALL WITH APPOINTMENT TIME.) - Diet and Activity Activity: increase activity as tolerated Diet: low fat, low cholesterol, low salt diet, other (diverticulosis diet) Hospital course: Ms. Michael is a 66 year old female patient with a history of arthritis, gastroesophageal reflux disease, hyperlipidemia, Yoo's esophagus and hiatal hernia status post surgical repair was hospitalize here with complaints of melena. She had been having cold sweats lighters and an occasional shortness of breath along with this. She had been taking ibuprofen daily for at least a month, 1 month back. Her hemoglobin level was 7.8 on presentation. She received 1 unit of packed red blood cells. She continued to have melena and underwent upper GI endoscopy yesterday. This did not show any active bleeding but the patient did have Yoo's esophagus. As she continued to have melena, she underwent colonoscopy today after bowel prep was done. This showed multiple diverticula and normal mucosa in the colon. However she had multiple aphthous ulcerations and congestion in the terminal ileum. Biopsies were taken for histology. Patient reported a history of ulcerative colitis that was not treated. She does not appear to be having this condition based on colonoscopy findings so far. At this time, gastroenterology recommends that the patient undergo capsule endoscopy as outpatient. She is cleared for discharge from their standpoint at this time and will follow up in the clinic for further management and to follow up on biopsy results. - Time Spent with Patient Total time spent providing and/or coordinating discharge services: Less than 30 minutes (25 min) - Constitutional Vitals: Temp Pulse Resp BP Pulse Ox 98.2 F 71 18 118/73 98 05/27/17 14:27 05/27/17 14:27 05/27/17 14:27 05/27/17 14:27 05/27/17 14:27 General appearance: Present: cooperative, A&O X 3, no acute distress, answers questions appropriately - Neck Neck exam general surgery: Present: supple, trachea midline. Absent: lymphadenopathy - Respiratory Respiratory exam: Present: CTAB. Absent: accessory muscle use, rales, rhonchi, wheezes - Cardiovascular Cardiovascular exam: Present: RRR, +S1, +S2. Absent: diastolic murmur, gallop, rubs, systolic murmur - GI/Abdominal GI/Abdominal exam: Present: normal bowel sounds, soft, no peritoneal signs. Absent: distended, tenderness
== END 2017-05-27 18:26 | disposition home or self-care (01) ==
LOC: EMEROO 15:04 → 3ANU 15:04 → SUATTDRO 23:45
PROVIDERS: ADMIT Internal Medicine; ATTEND Internal Medicine
PROC: ENDOEBX (2017-05-26 16:00)

== ENCOUNTER 2020-06-22 09:08 | Inpatient (IN) ==
[2020-06-22 10:03] LABS: Basophils % 0.6 %; Eosinophils # 0.1 K/mcL (0.0-0.6); Eosinophils % 1.6 %; Hematocrit 38.4 % (35.3-44.9); Immature Granulocytes % 0.4 % (0-4); Lymphocytes # 1.8 K/mcL (0.6-4.6); Lymphocytes % 26.3 %; Mean Corpuscular HGB Conc 33.9 g/dL (31.6-35.5); Mean Corpuscular Hemoglobin 31.4 pg (28.0-33.3); Mean Corpuscular Volume 92.8 fL (83.0-100.0); Mean Platelet Volume 10.8 fL (9.4-12.4); Monocytes # 0.6 K/mcL (0.0-1.3); Neutrophils # 4.4 K/mcL (1.6-8.9); Platelet Count 242 K/mcL (140-400); Red Blood Count 4.14 M/mcL (3.82-4.97); Red Cell Distribution Width 13.2 % (11.5-14.5); Segmented Neutrophils % 63.1 %; White Blood Count 6.9 K/mcL (4.3-11.1)
[2020-06-22] MEDS ORDERED: Dexamethasone 4 MG/ML VIAL ONE (10:19)
[2020-06-22] MEDS ORDERED: *HR* Propofol 200 MG/20 ML VIAL IVP ONE (10:19)
[2020-06-22] MEDS ORDERED: Lidocaine -MPF 2% 2 ML VIAL ONE ×2 (10:19→14:04)
[2020-06-22] MEDS ORDERED: Ondansetron 4 MG/2 ML VIAL ONE (10:19)
[2020-06-22] MEDS ORDERED: *HR* Succinylcholine 200 MG/10 ML VIAL IVP ONE (10:19)
[2020-06-22] MEDS ORDERED: *HR* FentaNYL (PF) 100 MCG/2 ML VIAL ONE (10:19)
[2020-06-22] MEDS ORDERED: Lidocaine -MPF 4% 5 ML AMPUL ONE (10:19)
[2020-06-22 10:22] LABS: BUN/Creatinine Ratio 22 (6-26); Blood Urea Nitrogen 20 mg/dL (8-23); Calcium 9.3 mg/dL (8.6-10.3); Carbon Dioxide 25 mEq/L (23-29); Chloride 105 mEq/L (98-107); Glucose 108 mg/dL (70-105); Osmolality,Calculated 291 (280-300); Potassium 4.4 mEq/L (3.5-5.1); Sodium 139 mEq/L (136-145); eGFR For African Americans > 60 (> 60); eGFR For Non-African Americans > 60 (> 60)
[2020-06-22] MEDS ORDERED: Ondansetron ODT 4 MG TAB.RAPDIS SL ONE (10:26)
[2020-06-22] MEDS ORDERED: *HR* OxyCODONE Immed Rel 5 MG TABLET PO PRN (10:26)
[2020-06-22] MEDS ORDERED: *HR* HYDROmorphone PF 0.5 MG/0.5 ML SYRINGE IVP PRN (10:26)
[2020-06-22] MEDS ORDERED: Famotidine 20 MG/2 ML VIAL IVP ONE (10:26)
[2020-06-22] MEDS ORDERED: diazePAM 5 MG TABLET PO ONE (10:26)
[2020-06-22] MEDS ORDERED: *HR* FentaNYL (PF) 100 MCG/2 ML VIAL IVP PRN (10:26)
[2020-06-22] MEDS ORDERED: *HR* Midazolam HCl 2 MG/2 ML VIAL IVP PRN (10:26)
[2020-06-22] MEDS ORDERED: Acetaminophen IV 1,000 MG/100 ML INFUS..BTL IVPB ONE (10:26)
[2020-06-22] MEDS ORDERED: *HR* Meperidine 25 MG/ML SYRINGE IVP PRN (10:26)
[2020-06-22] MEDS ORDERED: *HR* Promethazine 25 MG/ML VIAL IVP PRN ×2 (10:26→15:45)
[2020-06-22] MEDS ORDERED: cefOXitin 2,000 MG in Water for inj. (sterile) 20 ML IVP ONE (10:32)
[2020-06-22] MEDS ORDERED: Ringers Solution, Lactated 1,000 ML IVC SCH (10:45)
[2020-06-22] MEDS ORDERED: EPHEDrine 50 MG/ML VIAL ONE (11:35)
[2020-06-22] MEDS ORDERED: *HR* HYDROMORPHONE 2 MG/ML VIAL ONE (12:39)
[2020-06-22] MEDS ORDERED: *HR* Rocuronium Bromide 50 MG/5 ML VIAL ONE (12:55)
[2020-06-22] MEDS: 0.9 % Sodium Chloride w KCl 20 MEQ/1,000 ML MLS IVC SCH (17:05)
[2020-06-22] MEDS: Ketorolac 30 MG/ML VIAL IVP SCH (17:05)
[2020-06-22] MEDS: cefOXitin 2,000 MG in Water for inj. (sterile) 20 ML IVP SCH (17:05)
[2020-06-23] MEDS: cefOXitin 2,000 MG in Water for inj. (sterile) 20 ML IVP SCH ×4 (00:53→23:58)
[2020-06-23] MEDS: Ketorolac 30 MG/ML VIAL IVP SCH ×5 (00:54→23:57)
[2020-06-23] MEDS: 0.9 % Sodium Chloride w KCl 20 MEQ/1,000 ML MLS IVC SCH ×2 (06:19→20:57)
[2020-06-23] MEDS: Pantoprazole 40 MG VIAL IVP SCH (09:59)
[2020-06-23] MEDS: *HR* Metoprolol 5 MG/5 ML VIAL IVP SCH ×3 (11:19→23:57)
[2020-06-23] MEDS ORDERED: Isovue-370 500 ML BOTTLE IVP ONE (12:38)
[2020-06-23] MEDS ORDERED: Isovue-370 500 ML BOTTLE PO ONE (16:35)
[2020-06-24] MEDS: Ketorolac 30 MG/ML VIAL IVP SCH ×3 (06:48→18:12)
[2020-06-24] MEDS: *HR* Metoprolol 5 MG/5 ML VIAL IVP SCH (06:51)
[2020-06-24] MEDS: cefOXitin 2,000 MG in Water for inj. (sterile) 20 ML IVP SCH ×2 (08:44→16:19)
[2020-06-24] MEDS: Pantoprazole 40 MG VIAL IVP SCH (08:45)
[2020-06-24] MEDS ORDERED: *HR* Metoprolol 5 MG/5 ML VIAL IVP ONE (09:14)
[2020-06-24 10:13] LABS: Basophils % 0.3 %; Eosinophils # 0.1 K/mcL (0.0-0.6); Eosinophils % 0.4 %; Hematocrit 34.9 % (35.3-44.9); Hemoglobin 11.1 g/dL (11.5-15.4); Immature Granulocytes % 0.7 % (0-4); Lymphocytes # 1.6 K/mcL (0.6-4.6); Lymphocytes % 11.8 %; Mean Corpuscular HGB Conc 31.8 g/dL (31.6-35.5); Mean Corpuscular Hemoglobin 30.7 pg (28.0-33.3); Mean Corpuscular Volume 96.4 fL (83.0-100.0); Mean Platelet Volume 10.9 fL (9.4-12.4); Monocytes % 7.1 %; Neutrophils # 10.9 K/mcL (1.6-8.9); Platelet Count 203 K/mcL (140-400); Red Blood Count 3.62 M/mcL (3.82-4.97); Red Cell Distribution Width 14.1 % (11.5-14.5); Segmented Neutrophils % 79.7 %; White Blood Count 13.7 K/mcL (4.3-11.1)
[2020-06-24] MEDS ORDERED: DilTIAZem 50 MG/50 ML IV.SOLN IVC SCH (10:30)
[2020-06-24 10:32] LABS: BUN/Creatinine Ratio 31 (6-26); Blood Urea Nitrogen 26 mg/dL (8-23); Calcium 8.2 mg/dL (8.6-10.3); Carbon Dioxide 22 mEq/L (23-29); Chloride 109 mEq/L (98-107); Glucose 118 mg/dL (70-105); Osmolality,Calculated 290 (280-300); Potassium 4.2 mEq/L (3.5-5.1); Sodium 137 mEq/L (136-145); eGFR For African Americans > 60 (> 60); eGFR For Non-African Americans > 60 (> 60)
[2020-06-24] MEDS: 0.9 % Sodium Chloride w KCl 20 MEQ/1,000 ML MLS IVC SCH (11:10)
[2020-06-24] MEDS ORDERED: *HR* Metoprolol 5 MG/5 ML VIAL IVP PRN (11:24)
[2020-06-24] MEDS ORDERED: Perflutren Lipid Microsphere 1.3 ML in 0.9 % Sodium Chloride 8.7 ML IVP PRN (15:49)
[2020-06-25] MEDS: Ketorolac 30 MG/ML VIAL IVP SCH ×4 (00:07→18:41)
[2020-06-25] MEDS: cefOXitin 2,000 MG in Water for inj. (sterile) 20 ML IVP SCH ×3 (00:08→17:05)
[2020-06-25] MEDS: *HR* Heparin 5,000 UNIT/ML VIAL SQ SCH ×2 (05:25→18:40)
[2020-06-25] MEDS: 0.9 % Sodium Chloride w KCl 20 MEQ/1,000 ML MLS IVC SCH ×2 (05:26→21:15)
[2020-06-25] MEDS: Pantoprazole 40 MG VIAL IVP SCH (09:19)
[2020-06-25] MEDS: Multivit/Ca/Min/Fe/FA 1 TAB TABLET PO SCH (09:19)
[2020-06-25] MEDS: Acetaminophen 325 MG TABLET PO PRN (17:16)
[2020-06-26] MEDS: Ketorolac 30 MG/ML VIAL IVP SCH ×2 (01:09→08:00)
[2020-06-26] MEDS: cefOXitin 2,000 MG in Water for inj. (sterile) 20 ML IVP SCH ×2 (01:11→08:01)
[2020-06-26 06:51] LABS: Basophils % 0.5 %; Eosinophils # 0.2 K/mcL (0.0-0.6); Hematocrit 33.8 % (35.3-44.9); Hemoglobin 10.6 g/dL (11.5-15.4); Immature Granulocytes % 0.7 % (0-4); Lymphocytes # 1.3 K/mcL (0.6-4.6); Lymphocytes % 15.8 %; Mean Corpuscular HGB Conc 31.4 g/dL (31.6-35.5); Mean Corpuscular Hemoglobin 30.8 pg (28.0-33.3); Mean Corpuscular Volume 98.3 fL (83.0-100.0); Mean Platelet Volume 11.3 fL (9.4-12.4); Monocytes # 0.7 K/mcL (0.0-1.3); Monocytes % 8.3 %; Neutrophils # 6.1 K/mcL (1.6-8.9); Platelet Count 229 K/mcL (140-400); Red Blood Count 3.44 M/mcL (3.82-4.97); Red Cell Distribution Width 13.5 % (11.5-14.5); Segmented Neutrophils % 72.7 %; White Blood Count 8.3 K/mcL (4.3-11.1)
[2020-06-26 07:08] LABS: Alanine Aminotransferase 55 Units/L (7-52); Albumin 3.2 g/dL (3.5-5.7); Albumin/Globulin Ratio 1.2 (1.1-2.2); Alkaline Phosphatase 61 Units/L (34-104); Aspartate Amino Transferase 38 Units/L (13-39); BUN/Creatinine Ratio 29 (6-26); Bilirubin,Total 0.6 mg/dL (0.3-1.0); Blood Urea Nitrogen 23 mg/dL (8-23); Calcium 8.2 mg/dL (8.6-10.3); Carbon Dioxide 22 mEq/L (23-29); Chloride 110 mEq/L (98-107); Globulin 2.7 g/dL (2.4-3.5); Glucose 98 mg/dL (70-105); Osmolality,Calculated 292 (280-300); Potassium 3.9 mEq/L (3.5-5.1); Sodium 139 mEq/L (136-145); Total Protein 5.9 g/dL (6.4-8.9); eGFR For African Americans > 60 (> 60); eGFR For Non-African Americans > 60 (> 60)
[2020-06-26] MEDS: Acetaminophen 325 MG TABLET PO PRN (08:00)
[2020-06-26] MEDS: Multivit/Ca/Min/Fe/FA 1 TAB TABLET PO SCH (08:00)
[2020-06-26] MEDS: *HR* Heparin 5,000 UNIT/ML VIAL SQ SCH (08:02)
[2020-06-26] MEDS: Pantoprazole 40 MG VIAL IVP SCH (08:03)
[2020-06-26 09:52] VITALS: BP 157/80
== END 2020-06-26 11:37 | disposition home or self-care (01) | DRG 326 ==
LOC: SAMDAY 09:08 → 3ANU 15:35
PROVIDERS: ADMIT Surgery; ATTEND Surgery